=== PATIENT | female | born 1995 | race Caucasian/White ===

== ENCOUNTER 2019-01-23 14:19 | Emergency (ER) | payer OTHER ==
[~2019-01-23] VITALS: Ht 154.9 cm; Wt 72.7 kg
[2019-01-23 15:08] VITALS: Ht 154.9 cm; Wt 72.7 kg
[2019-01-23 17:50] LABS: BASOPHIL % 0.5 % (0-2); PLATELET COUNT 431 x10^3mcL (130-400); RED CELL DISTRIBUTION WIDTH 12.3 % (11.5-14.5)
[2019-01-23 18:30] VITALS: BP 136/89
== END 2019-01-23 18:31 | disposition home or self-care (01) ==
LOC: ED 14:19
PROVIDERS: Emergency Medicine
DX: N93.8 Other specified abnormal uterine and vaginal bleeding (principal); R10.32 Left lower quadrant pain
CPT/HCPCS: 36415; J1885